=== PATIENT | female | born 1980 | race Caucasian/White ===

== ENCOUNTER 2021-06-19 15:07 | Emergency (ER) | payer MEDICAID ==
[2021-06-19] MEDS ORDERED: VENLAFAXINE HYD75 MG (15:27)
[2021-06-19 16:05] LABS: BASO # 0.03 (0.02-0.10); EOS # 0.08 (0.04-0.40); EOS % 1.2 % (1.0-5.0); HEMATOCRIT 39.1 % (37.0-47.0); HEMOGLOBIN 13.3 g/dL (12.5-16.0); LYMPH# 1.83 (1.50-4.00); MEAN CELL VOLUME 93 fl (78-100); MEAN CORPUSCULAR HEMOGLOBIN 32 pg (27-31); MEAN CORPUSCULAR HGB CONC 34 g/dL (33-37); MEAN PLATELET VOLUME 9.4 fl (7.4-10.4); MONO # 0.44 (0.20-0.80); NEU # 4.19 (1.40-6.50); PLATELET COUNT 263 K/mm3 (130-400); RED BLOOD COUNT 4.19 M/mm3 (4.10-5.30); RED CELL DISTRIBUTION WIDTH 11.4 % (11.5-14.5); WHITE BLOOD COUNT 6.6 K/mm3 (4.8-10.8)
[2021-06-19 16:16] LABS: ALBUMIN 3.9 g/dL (3.5-5.0); SODIUM 140 mmol/L (136-145)
[2021-06-19 16:17] LABS: CALCIUM 9.3 mg/dL (8.3-10.5)
[2021-06-19 16:18] LABS: GLUCOSE 116 mg/dL (65-105); TOTAL PROTEIN 6.7 g/dL (6.4-8.3)
[2021-06-19 16:19] LABS: CARBON DIOXIDE 25 mmol/L (22-29)
[2021-06-19 16:20] LABS: TOTAL BILIRUBIN 0.9 mg/dL (0.2-1.2)
[2021-06-19 16:24] LABS: AST-SGOT 14 U/L (5-34)
[2021-06-19 16:25] LABS: ALT/SGPT 9 U/L (0-55)
[2021-06-19 16:30] LABS: ACETAMINOPHEN < 1 ug/mL; ALCOHOL IN-HOUSE < 10 mg/dL (<10)
[2021-06-19 17:02] LABS: PH-URINE 8.5 (5.0 - 8.0); URINE APPEARANCE CLEAR; URINE COLOR YELLOW; URINE PROTEIN(semi-quant) NEGATIVE (NEGATIVE)
[2021-06-19 17:03] LABS: URINE BILIRUBIN NEGATIVE (NEGATIVE); URINE BLOOD 250 ery/uL (NEGATIVE); URINE GLUCOSE NEGATIVE (NEGATIVE); URINE KETONE NEGATIVE (NEGATIVE); URINE LEUKOCYTE ESTERASE NEGATIVE (NEGATIVE); URINE NITRATE NEGATIVE (NEGATIVE); URINE UROBILINOGEN NORMAL (NORMAL); URINE WBC 0-1 /hpf (0-3)
[2021-06-19 19:18] VITALS: BP 118/67
== END 2021-06-19 19:44 | disposition home or self-care (01) ==
LOC: ED 15:07
PROVIDERS: Nurse Practitioner Family
DX: F43.9 Reaction to severe stress, unspecified (principal); F20.89 Other schizophrenia; F32.9 Major depressive disorder, single episode, unspecified; F41.9 Anxiety disorder, unspecified

== ENCOUNTER 2021-06-30 21:25 | Emergency (ER) | payer MEDICAID ==
[~2021-06-30] VITALS: Ht 160 cm; Wt 63.6 kg
[~2021-06-30 21:25] MED LIST: VENLAFAXINE HYD75 MG
[2021-06-30] MEDS ORDERED: VENLAFAXINE37.5 MG PO (21:52)
[2021-06-30 23:56] VITALS: BP 133/86
== END 2021-06-30 23:56 | disposition home or self-care (01) ==
LOC: ED 21:25
DX: M25.551 Pain in right hip (principal); F32.9 Major depressive disorder, single episode, unspecified; F41.9 Anxiety disorder, unspecified; F17.210 Nicotine dependence, cigarettes, uncomplicated; Z79.899 Other long term (current) drug therapy; V58.4XXA Person boarding or alighting a pick-up truck or van injured in noncollision transport accident, initial encounter
CPT/HCPCS: J1885; J2360

== ENCOUNTER 2021-07-17 15:31 | Emergency (ER) | payer MEDICAID ==
[~2021-07-17 15:31] MED LIST changes: +VENLAFAXINE37.5 MG PO
[2021-07-17 16:25] LABS: BASO # 0.03 (0.02-0.10); EOS # 0.02 (0.04-0.40); EOS % 0.2 % (1.0-5.0); HEMATOCRIT 42.6 % (37.0-47.0); HEMOGLOBIN 14.7 g/dL (12.5-16.0); LYMPH# 1.13 (1.50-4.00); MEAN CELL VOLUME 92 fl (78-100); MEAN CORPUSCULAR HEMOGLOBIN 32 pg (27-31); MEAN CORPUSCULAR HGB CONC 35 g/dL (33-37); MEAN PLATELET VOLUME 9.7 fl (7.4-10.4); MONO # 0.37 (0.20-0.80); NEU # 8.72 (1.40-6.50); PLATELET COUNT 288 K/mm3 (130-400); RED BLOOD COUNT 4.63 M/mm3 (4.10-5.30); RED CELL DISTRIBUTION WIDTH 11.7 % (11.5-14.5); WHITE BLOOD COUNT 10.3 K/mm3 (4.8-10.8)
[2021-07-17 16:36] LABS: ALBUMIN 3.9 g/dL (3.5-5.0); POTASSIUM 3.3 mmol/L (3.5-5.1); SODIUM 139 mmol/L (136-145)
[2021-07-17 16:38] LABS: GLUCOSE 132 mg/dL (65-105)
[2021-07-17 16:39] LABS: TOTAL PROTEIN 6.3 g/dL (6.4-8.3)
[2021-07-17 16:40] LABS: TOTAL BILIRUBIN 1.2 mg/dL (0.2-1.2)
[2021-07-17 16:44] LABS: AST-SGOT 14 U/L (5-34)
[2021-07-17 16:45] LABS: ALT/SGPT 10 U/L (0-55)
[2021-07-17 16:51] LABS: ACETAMINOPHEN < 1 ug/mL; ALCOHOL IN-HOUSE < 10 mg/dL (<10); CARBON DIOXIDE 17 mmol/L (22-29)
[2021-07-17 19:20] LABS: URINE APPEARANCE HAZY; URINE COLOR DARK YELLOW
[2021-07-17 19:21] LABS: PH-URINE 5.5 (5.0 - 8.0); URINE BILIRUBIN NEGATIVE (NEGATIVE); URINE BLOOD 250 ery/uL (NEGATIVE); URINE GLUCOSE NEGATIVE (NEGATIVE); URINE KETONE 3+ (NEGATIVE); URINE LEUKOCYTE ESTERASE NEGATIVE (NEGATIVE); URINE MUCUS PRESENT (NOT PRESENT); URINE NITRATE NEGATIVE (NEGATIVE); URINE PROTEIN(semi-quant) TRACE mg/dL (NEGATIVE); URINE UROBILINOGEN NORMAL (NORMAL); URINE WBC 0-1 /hpf (0-3)
[2021-07-19 01:41] VITALS: BP 132/73
== END 2021-07-19 01:48 ==
LOC: ED 15:31
PROVIDERS: Nurse Practitioner Family
DX: F41.9 Anxiety disorder, unspecified (principal); F32.9 Major depressive disorder, single episode, unspecified; F25.9 Schizoaffective disorder, unspecified; F60.3 Borderline personality disorder; Z20.822 Contact with and (suspected) exposure to COVID-19; Z79.899 Other long term (current) drug therapy

== ENCOUNTER 2022-07-27 08:00 | Outpatient (RCR) | payer MEDICAID | END 2022-08-24 | disposition still patient (30) | LOC: PT | DX: M25.311 Other instability, right shoulder (principal); M25.511 Pain in right shoulder ==

== ENCOUNTER 2022-08-26 08:00 | Outpatient (RCR) | payer MEDICAID | END 2022-09-23 | disposition home or self-care (01) | LOC: PT | DX: M25.511 Pain in right shoulder (principal) ==

== ENCOUNTER 2022-12-03 19:09 | Emergency (ER) | payer MEDICAID ==
[~2022-12-03] VITALS: Wt 63.6 kg
[2022-12-03] MEDS ORDERED: QUETIAPINE FUMA50 M1 PO (19:20)
[2022-12-03 19:43] VITALS: BP 116/68
== END 2022-12-03 19:43 | disposition home or self-care (01) ==
LOC: ED 19:09
DX: F41.9 Anxiety disorder, unspecified (principal); Z28.310 Unvaccinated for COVID-19